=== PATIENT | male | born 1945 | race Caucasian/White ===

== ENCOUNTER 2017-12-06 10:15 | Inpatient (IN) | payer MEDICARE, OTHER ==
--- NOTE | 2017-12-06 10:27 | EDM.PDOC ---
ED HPI GENERAL MEDICAL PROBLEM - General Chief Complaint: Neurological Problem Stated Complaint: CONFUSION, GENERALIZED WEAKNESS, DIARRHEA Time Seen by Provider: 12/06/17 10:26 Source of Information: Reports: Patient, Family (), Old Records, RN, RN Notes Reviewed History Limitations: Reports: Altered Mental Status - History of Present Illness INITIAL COMMENTS - FREE TEXT/NARRATIVE: Arrives from home by POV with pt's reporting pt woke yesterday (12/05/17) with confusion/alt. mental status, and weakness. Pt unable to provide any history. states pt has been up around the house only a little and he staggers with weakness and is off balance. Unknown last known well time. Pt denies pain. states pt has had several days of diarrhea preceding the onset of confusion. Onset: Unknown/Unsure Onset Date: 12/05/17 Duration: Constant Quality: Reports: Other (denies) Severity: Severe (denies pain) Improves with: Reports: None Worsens with: Reports: None Associated Symptoms: Reports: No Other Symptoms - Related Data Allergies Allergy/AdvReac Type Severity Reaction Status Date / Time No Known Allergies Allergy Verified 10/02/16 06:27 Home Meds: Home Meds Clopidogrel [Plavix] 75 mg PO DAILY 04/19/14 [History] Felodipine [Felodipine ER] 10 mg PO DAILY 04/19/14 [History] Lisinopril 10 mg PO DAILY 04/19/14 [History] atorvaSTATin [Lipitor] 80 mg PO DAILY 04/19/14 [History] Cyanocobalamin (Vitamin B12) [Vitamin B12] 1,000 mcg INJECT .[id number] 10/01/16 [ History] Donepezil [Aricept] 1 tab PO BEDTIME 10/01/16 [History] Lidocaine 5% [Lidoderm 5%] 1 patch TOP Q24H 10/01/16 [History] Hydrocodone/Acetaminophen [Hydrocodon-Acetaminophn 10-325] 1 tab PO ASDIRECTED PRN 12/06/17 [History] Vardenafil HCl [Levitra] 1 tab PO ASDIRECTED PRN 12/06/17 [History] Vitamin E 1 cap PO DAILY 12/06/17 [History] Past Medical History HEENT History: Reports: None Cardiovascular History: Reports: High Cholesterol, Hypertension Respiratory History: Reports: None Gastrointestinal History: Reports: Diverticulosis Musculoskeletal History: Reports: Fracture Neurological History: Reports: TIA, Other (See Below) Other Neuro History: stroke syndrome Psychiatric History: Reports: Dementia Endocrine/Metabolic History: Reports: Other (See Below) (Vitamin B12 deficiency) Hematologic History: Reports: B12 Deficiency Dermatologic History: Reports: Seborrheic Dermatitis - Infectious Disease History Infectious Disease History: Reports: Rheumatic Fever - Past Surgical History Musculoskeletal Surgical History: Reports: Other (See Below) Social & Family History - Family History Family Medical History: Noncontributory - Tobacco Use Smoking Status *Q: Former Smoker Years of Tobacco use: 25 Used Tobacco, but Quit: Yes Month Tobacco Last Used: 07/04/1987 Second Hand Smoke Exposure: No - Caffeine Use Caffeine Use: Reports: Coffee - Alcohol Use Days Per Week of Alcohol Use: 3 Number of Drinks Per Day: 3 Total Drinks Per Week: 9 - Recreational Drug Use Recreational Drug Use: No - Living Situation & Occupation Living situation: Reports: Occupation: Retired ED ROS GENERAL - Review of Systems Review Of Systems: ROS reveals no pertinent complaints other than HPI. - Physical Exam Exam: See Below Exam Limited By: Altered Mental Status General Appearance: Alert, No Apparent Distress, Other (chronically ill but non- toxic appearing) Eye Exam: Bilateral Eye: EOMI, Normal Inspection, PERRL Ears: Hearing Grossly Normal Nose: Normal Inspection Throat/Mouth: Normal Lips, Normal Oropharynx, Normal Voice, No Airway Compromise Head Exam: Atraumatic, Normocephalic Neck: Normal Inspection, Supple, Non-Tender, Full Range of Motion Respiratory/Chest: No Respiratory Distress, Lungs Clear, No Accessory Muscle Use , Decreased Breath Sounds Cardiovascular: Regular Rate, Rhythm, No Edema GI/Abdominal: Normal Bowel Sounds, Soft, Non-Tender, No Distention (Male) Exam: Deferred Rectal (Males) Exam: Deferred Neuro Exam (Abbreviated): Alert, Confused, Other (generalized weakness) Back Exam: Normal Inspection Extremities: Normal Inspection, Normal Range of Motion, Non-Tender, No Pedal Edema, Normal Capillary Refill Psychiatric: Normal Mood Skin Exam: Warm, Dry, Intact, Normal Color, No Rash EKG INTERPRETATION EKG Date: 12/06/17 Time: 10:19 Rhythm: Other (SR) Rate (Beats/Min): 75 [place]: Normal P-Wave: Present QRS: Normal (with single PVC) ST-T: Normal QT: Normal Comparison: NA - No Prior EKG EKG Interpretation Comments: No acute ischemic changes. Course - Vital Signs Last Recorded V/S: Last Vital Signs Temp 37.6 C 12/06/17 10:16 Pulse 76 12/06/17 10:16 Resp 18 12/06/17 10:16 BP 152/73 H 12/06/17 10:16 Pulse Ox 97 12/06/17 10:16 - Orders/Labs/Meds Orders: Active Orders 24 hr Category Date Time Status EKG 12 Lead [EKG Documentation Completion] [RC] STAT Care 12/06/17 10:32 Active Peripheral IV Care [RC] . DIRECTED Care 12/06/17 10:33 Active Chest 1V Frontal [CR] Stat Exams 12/06/17 10:34 Taken Head wo Cont [CT] Stat Exams 12/06/17 10:27 Taken AMMONIA VENOUS [CHEM] Stat Lab 12/06/17 10:29 Ordered AMMONIA VENOUS [CHEM] Stat Lab 12/06/17 11:02 Received AMYLASE [CHEM] Stat Lab 12/06/17 10:28 Ordered CBC WITH AUTO DIFF [HEME] Stat Lab 12/06/17 10:28 Ordered COMPREHENSIVE METABOLIC PN,CMP [CHEM] Stat Lab 12/06/17 10:28 Ordered CREATINE KINASE,CK [CHEM] Stat Lab 12/06/17 10:28 Ordered CULTURE BLOOD [BC] Stat Lab 12/06/17 10:28 Received CULTURE BLOOD [BC] Stat Lab 12/06/17 10:29 Ordered CULTURE BLOOD [BC] Stat Lab 12/06/17 10:29 Ordered CULTURE BLOOD [BC] Stat Lab 12/06/17 11:02 Received DRUG SCREEN URINE BIORAD [URCHEM] Stat Lab 12/06/17 10:28 Uncollected TSH ULTRASENSITIVE [CHEM] Stat Lab 12/06/17 10:28 Received UA W/MICROSCOPIC [URIN] Stat Lab 12/06/17 10:32 Uncollected Sodium Chloride 0.9% [Normal Saline] 1,000 ml Med 12/06/17 11:15 Active IV ASDIRECTED Sodium Chloride 0.9% [Saline Flush] Med 12/06/17 10:31 Active 10 ml FLUSH ASDIRECTED PRN Blood Culture x2 Reflex Set [OM.PC] Stat Oth 12/06/17 10:28 Ordered Peripheral IV Insertion Adult [OM.PC] Stat Oth 12/06/17 10:32 Ordered Medication Orders Sodium Chloride (Normal Saline) 1,000 mls @ 200 mls/hr IV ASDIRECTED JAMIE Sodium Chloride (Saline Flush) 10 ml FLUSH ASDIRECTED PRN PRN Reason: Keep Vein Open Last Admin: 12/06/17 10:42 Dose: 10 ml Labs: Laboratory Tests 12/06/17 12/06/17 12/06/17 Range/Units 10:28 10:28 10:28 WBC (5.0-10.0) 10^3/uL RBC (4.6-6.2) 10^6/uL Hgb (14.0-18.0) g/dL Hct (40.0-54.0) % MCV (80-100) fL MCH (27.0-34.0) pg MCHC (33.0-35.0) g/dL Plt Count (150-450) 10^3/uL Neut % (Auto) (42.2-75.2) % Lymph % (Auto) (20.5-50.1) % [place] % (Auto) (2-8) % Eos % (Auto) (1.0-3.0) % Baso % (Auto) (0.0-1.0) % Sodium 137 (135-145) mmol/L Potassium 3.9 (3.6-5.0) mmol/L Chloride 106 (101-111) mmol/L Carbon Dioxide 20.0 L (21.0-31.0) mmol/L Anion Gap 14.9 BUN 29 H (7-18) mg/dL Creatinine 1.4 H (0.6-1.3) mg/dL Est Cr Clr Drug Dosing 47.69 mL/min Estimated GFR (MDRD) 50 BUN/Creatinine Ratio 20.71 Glucose 119 H (74-105) mg/dL POC Glucose 109 (83-110) mg/dl Lactic Acid 1.0 (0.5-2.2) mmol/L Calcium 9.5 (8.4-10.2) mg/dl Magnesium 1.8 (1.8-2.5) mg/dL Total Bilirubin 0.7 (0.2-1.0) mg/dL AST 22 (10-42) IU/L ALT 34 (10-60) IU/L Alkaline Phosphatase 81 (42-121) IU/L Creatine Kinase 31 (26-174) IU/L Troponin I < 0.02 (0.00-0.02) ng/ml Total Protein 7.5 (6.7-8.2) g/dl Albumin 4.2 (3.2-5.5) g/dl Globulin 3.3 Albumin/Globulin Ratio 1.27 Amylase 139 H (28-100) U/L Lipase 55 H (22-51) U/L Ethyl Alcohol < 5 mg/dL 12/06/17 Range/Units 10:28 WBC 11.9 H (5.0-10.0) 10^3/uL RBC 4.81 (4.6-6.2) 10^6/uL Hgb 13.9 L (14.0-18.0) g/dL Hct 42.8 (40.0-54.0) % MCV 89.0 (80-100) fL MCH 28.9 (27.0-34.0) pg MCHC 32.5 L (33.0-35.0) g/dL Plt Count 190 (150-450) 10^3/uL Neut % (Auto) 86.4 H (42.2-75.2) % Lymph % (Auto) 6.0 L (20.5-50.1) % [place] % (Auto) 7.5 (2-8) % Eos % (Auto) 0.0 L (1.0-3.0) % Baso % (Auto) 0.1 (0.0-1.0) % Sodium (135-145) mmol/L Potassium (3.6-5.0) mmol/L Chloride (101-111) mmol/L Carbon Dioxide (21.0-31.0) mmol/L Anion Gap BUN (7-18) mg/dL Creatinine (0.6-1.3) mg/dL Est Cr Clr Drug Dosing mL/min Estimated GFR (MDRD) BUN/Creatinine Ratio Glucose (74-105) mg/dL POC Glucose (83-110) mg/dl Lactic Acid (0.5-2.2) mmol/L Calcium (8.4-10.2) mg/dl Magnesium (1.8-2.5) mg/dL Total Bilirubin (0.2-1.0) mg/dL AST (10-42) IU/L ALT (10-60) IU/L Alkaline Phosphatase (42-121) IU/L Creatine Kinase (26-174) IU/L Troponin I (0.00-0.02) ng/ml Total Protein (6.7-8.2) g/dl Albumin (3.2-5.5) g/dl Globulin Albumin/Globulin Ratio Amylase (28-100) U/L Lipase (22-51) U/L Ethyl Alcohol mg/dL Meds: Medications Generic Name Dose Route Start Last Admin Trade Name Freq PRN Reason Stop Dose Admin Sodium Chloride 1,000 mls @ 200 mls/hr 12/06/17 11:15 Normal Saline IV ASDIRECTED JAMIE Sodium Chloride 10 ml 12/06/17 10:31 12/06/17 10:42 Saline Flush FLUSH 10 ml ASDIRECTED PRN Administration Keep Vein Open - Radiology Interpretation Free Text/Narrative:: CXR: No acute process CT Head: possible acute ischemic area in left occipital lobe per Rad. report. CT Results Date: 12/06/17 Departure - Departure Time of Disposition: 11:26 (admit to Dr. Lockett) Disposition: Admitted As Inpatient 66 Condition: Serious Clinical Impression: Ischemic cerebrovascular accident (CVA), Acute diarrhea, Dehydration Altered mental status Qualifiers: Altered mental status type: disorientation Qualified Code(s): R41.0 - Disorientation, unspecified - Discharge Information Forms: ED Department Discharge - My Orders Last 24 Hours: My Active Orders 12/06/17 10:27 Head wo Cont [CT] Stat 12/06/17 10:28 AMYLASE [CHEM] Stat CBC WITH AUTO DIFF [HEME] Stat COMPREHENSIVE METABOLIC PN,CMP [CHEM] Stat CREATINE KINASE,CK [CHEM] Stat CULTURE BLOOD [BC] Stat DRUG SCREEN URINE BIORAD [URCHEM] Stat TSH ULTRASENSITIVE [CHEM] Stat Blood Culture x2 Reflex Set [OM.PC] Stat 12/06/17 10:29 AMMONIA VENOUS [CHEM] Stat CULTURE BLOOD [BC] Stat CULTURE BLOOD [BC] Stat 12/06/17 10:31 Sodium Chloride 0.9% [Saline Flush] 10 ml FLUSH ASDIRECTED PRN 12/06/17 10:32 EKG 12 Lead [EKG Documentation Completion] [RC] STAT UA W/MICROSCOPIC [URIN] Stat Peripheral IV Insertion Adult [OM.PC] Stat 12/06/17 10:33 Peripheral IV Care [RC] . DIRECTED 12/06/17 10:34 Chest 1V Frontal [CR] Stat 12/06/17 11:02 AMMONIA VENOUS [CHEM] Stat CULTURE BLOOD [BC] Stat 12/06/17 11:15 Sodium Chloride 0.9% [Normal Saline] 1,000 ml IV ASDIRECTED - Assessment/Plan Last 24 Hours: My Active Orders 12/06/17 10:27 Head wo Cont [CT] Stat 12/06/17 10:28 AMYLASE [CHEM] Stat CBC WITH AUTO DIFF [HEME] Stat COMPREHENSIVE METABOLIC PN,CMP [CHEM] Stat CREATINE KINASE,CK [CHEM] Stat CULTURE BLOOD [BC] Stat DRUG SCREEN URINE BIORAD [URCHEM] Stat TSH ULTRASENSITIVE [CHEM] Stat Blood Culture x2 Reflex Set [OM.PC] Stat 12/06/17 10:29 AMMONIA VENOUS [CHEM] Stat CULTURE BLOOD [BC] Stat CULTURE BLOOD [BC] Stat 12/06/17 10:31 Sodium Chloride 0.9% [Saline Flush] 10 ml FLUSH ASDIRECTED PRN 12/06/17 10:32 EKG 12 Lead [EKG Documentation Completion] [RC] STAT UA W/MICROSCOPIC [URIN] Stat Peripheral IV Insertion Adult [OM.PC] Stat 12/06/17 10:33 Peripheral IV Care [RC] . DIRECTED 12/06/17 10:34 Chest 1V Frontal [CR] Stat 12/06/17 11:02 AMMONIA VENOUS [CHEM] Stat CULTURE BLOOD [BC] Stat 12/06/17 11:15 Sodium Chloride 0.9% [Normal Saline] 1,000 ml IV ASDIRECTED
[2017-12-06] MEDS: Sodium Chloride 0.9% 10 ML Syringe FLUSH PRN ×2 (10:42→23:53)
[2017-12-06 11:02] LABS: ANION GAP 14.9; CHLORIDE,CL 106 mmol/L (101-111); SODIUM,NA 137 mmol/L (135-145)
[2017-12-06] MEDS ORDERED: Sodium Chloride 0.9% 1,000 ML IV SCH (11:15)
[2017-12-06] MEDS ORDERED: Acetaminophen/HYDROcodone 325-10 MG Tab PO PRN (13:10)
[2017-12-06] MEDS ORDERED: Zolpidem 5 MG Tab PO PRN (13:26)
[2017-12-06] MEDS ORDERED: Ondansetron 4 MG/2 ML SDV IVPUSH PRN (13:26)
--- NOTE | 2017-12-06 13:49 | PCM.HP ---
H&P History of Present Illness - General Date of Service: 12/06/17 Admit Problem/Dx: Admission Diagnosis/Problem Admission Diagnosis/Problem Acute encephalopathy Source of Information: Patient (The patient has minimal insight into recent events), Family - History of Present Illness Initial Comments - Free Text/Narative: The patient is a 73-year-old gentleman with a history of dementia. Lives with family. He was noted to have diarrhea. He was noted to have increased confusion. No apparent focal motor deficit but appeared unsteady on his feet. No fever, no complains of pain. No shortness of breath. - Related Data Allergies/Adverse Reactions: Allergies Allergy/AdvReac Type Severity Reaction Status Date / Time No Known Allergies Allergy Verified 12/06/17 12:50 Home Medications: Home Meds Clopidogrel [Plavix] 75 mg PO DAILY 04/19/14 [History] Felodipine [Felodipine ER] 10 mg PO DAILY 04/19/14 [History] Lisinopril 10 mg PO DAILY 04/19/14 [History] atorvaSTATin [Lipitor] 80 mg PO DAILY 04/19/14 [History] Cyanocobalamin (Vitamin B12) [Vitamin B12] 1,000 mcg INJECT .[id number] 10/01/16 [ History] Donepezil [Aricept] 2 tab PO BEDTIME 10/01/16 [History] Lidocaine 5% [Lidoderm 5%] 1 patch TOP Q24H 10/01/16 [History] Hydrocodone/Acetaminophen [Hydrocodon-Acetaminophn 10-325] 1 tab PO ASDIRECTED PRN 12/06/17 [History] Vardenafil HCl [Levitra] 1 tab PO ASDIRECTED PRN 12/06/17 [History] Vitamin E 1 cap PO BID 12/06/17 [History] Past Medical History HEENT History: Reports: None Cardiovascular History: Reports: High Cholesterol, Hypertension Respiratory History: Reports: None Gastrointestinal History: Reports: Diverticulosis Musculoskeletal History: Reports: Fracture Neurological History: Reports: TIA, Other (See Below) Other Neuro History: stroke syndrome Psychiatric History: Reports: Dementia Endocrine/Metabolic History: Reports: Other (See Below) Hematologic History: Reports: B12 Deficiency Dermatologic History: Reports: Seborrheic Dermatitis - Infectious Disease History Infectious Disease History: Reports: Rheumatic Fever - Past Surgical History Male Surgical History: Reports: Other (See Below) Other Male Surgeries/Procedures: gynecomastia, male Musculoskeletal Surgical History: Reports: Other (See Below) Social & Family History - Family History Family Medical History: Noncontributory - Tobacco Use Smoking Status *Q: Former Smoker Years of Tobacco use: 25 Used Tobacco, but Quit: Yes Month Tobacco Last Used: 07/04/1987 Second Hand Smoke Exposure: No - Caffeine Use Caffeine Use: Reports: Coffee - Alcohol Use Days Per Week of Alcohol Use: 3 Number of Drinks Per Day: 3 Total Drinks Per Week: 9 - Recreational Drug Use Recreational Drug Use: No - Living Situation & Occupation Living situation: Reports: Occupation: Retired H&P Review of Systems - Review of Systems: Review Of Systems: See Below General: Denies: Fever, Chills Pulmonary: Denies: Shortness of Breath Cardiovascular: Denies: Chest Pain Gastrointestinal: Denies: Abdominal Pain Psychiatric: Reports: Confusion Neurological: Reports: Dizziness Exam - Exam Exam: See Below - Vital Signs Vital Signs: Last Vital Signs Temp 37.1 C 12/06/17 12:25 Pulse 72 12/06/17 12:25 Resp 20 12/06/17 12:25 BP 124/65 12/06/17 12:25 Pulse Ox 97 12/06/17 12:25 Weight: 81.647 kg - Exam General: Alert. No: Oriented (He is not clear why he is in the hospital but he notes that he is in the hospital) Neck: Supple Lungs: Clear to Auscultation Cardiovascular: Regular Rate, Regular Rhythm GI/Abdominal Exam: Normal Bowel Sounds, Soft, Non-Tender Extremities: No Pedal Edema Neurological: Strength Equal Bilateral, Sensation Intact Neuro Extensive - Mental Status: Alert, Normal Mood/Affect. No: Oriented x3 - Patient Data Result Diagrams: 12/06/17 10:28 12/06/17 10:28 Imaging Impressions Last 24 hrs: Chest x-ray per my reading shows no infiltrate *Q Meaningful Use (ADM) - VTE *Q VTE Criteria *Q: - Stroke *Q Stroke Criteria *Q: - AMI *Q AMI Criteria *Q: - Problem List (1) Ischemic cerebrovascular accident (CVA) SNOMED Code(s): 074003051 ICD Code: I63.9 - CEREBRAL INFARCTION, UNSPECIFIED Status: Acute Current Visit: Yes Problem List Initiated/Reviewed/Updated: Yes Orders Last 24hrs: Active Orders 24 hr Category Date Time Status Patient Status [ADT] Routine ADT 12/06/17 13:26 Active Antiembolic Devices [RC] PER UNIT ROUTINE Care 12/06/17 13:29 Active Oxygen Therapy [RC] PRN Care 12/06/17 13:26 Active Telemetry Monitoring [Cardiac Monitoring] [RC] . Care 12/06/17 13:13 Active DIRECTED Up With Assistance [RC] ASDIRECTED Care 12/06/17 13:26 Active VTE/DVT Education [RC] PER UNIT ROUTINE Care 12/06/17 13:26 Active Vital Signs [RC] Q4H Care 12/06/17 13:26 Active OT Evaluation and Treatment [CONS] Routine Cons 12/06/17 13:13 Active PT Evaluation and Treatment [CONS] Routine Cons 12/06/17 13:13 Active Regular Diet [DIET] Diet 12/06/17 Dinner Active Brain w wo Cont [MR] Routine Exams 12/06/17 13:13 Ordered BASIC METABOLIC PANEL,BMP [CHEM] AM Lab 12/07/17 05:15 Ordered C DIFFICILE TOXIN BY PCR [MREF] Routine Lab 12/06/17 13:14 Uncollected CBC WITH AUTO DIFF [HEME] AM Lab 12/07/17 05:15 Ordered Acetaminophen [Tylenol] Med 12/06/17 13:26 Active 650 mg PO Q4H PRN Acetaminophen/HYDROcodone [[place] 325-10 MG] Med 12/06/17 13:10 Active 1 tab PO Q8H PRN Clopidogrel [Plavix] Med 12/07/17 09:00 Active 75 mg PO DAILY Donepezil [Aricept] Med 12/06/17 21:00 Active 20 mg PO BEDTIME Felodipine [Felodipine ER] Med 12/07/17 09:00 Pending 10 mg PO DAILY Heparin Sodium Med 12/06/17 22:00 Active 5,000 units SUBCUT Q8HR Lidocaine 5% [Lidoderm 5%] Med 12/06/17 13:15 Active 700 mg TOP DAILY Lisinopril [Prinivil] Med 12/07/17 09:00 Active 10 mg PO DAILY NS + KCl 20mEq/L [Normal Saline with 20 mEq KCl] 1,000 Med 12/06/17 13:15 Active ml IV ASDIRECTED Ondansetron [Zofran] Med 12/06/17 13:26 Active 4 mg IVPUSH Q4H PRN Remove Patch Med 12/06/17 21:00 Active 1 ea TRDERM BEDTIME Zolpidem [Ambien] Med 12/06/17 13:26 Active 5 mg PO BEDTIME PRN atorvaSTATin [Lipitor] Med 12/07/17 09:00 Active 80 mg PO DAILY Antiembolic Hose [OM.PC] Per Unit Routine Oth 12/06/17 13:28 Ordered Resuscitation Status Routine Resus Stat 12/06/17 13:26 Ordered Medication Orders Acetaminophen (Tylenol) 650 mg PO Q4H PRN PRN Reason: Pain (Mild 1-3)/fever Hydrocodone Bitart/Acetaminophen ([place] 325-10 Mg) 1 tab PO Q8H PRN PRN Reason: back pain Atorvastatin Calcium (Lipitor) 80 mg PO DAILY JAMIE Clopidogrel Bisulfate (Plavix) 75 mg PO DAILY JAMIE Donepezil HCl (Aricept) 20 mg PO BEDTIME JAMIE Heparin Sodium (Porcine) (Heparin Sodium) 5,000 units SUBCUT Q8HR JAMIE Potassium Chloride/Sodium Chloride (Normal Saline With 20 Meq Kcl) 1,000 mls @ 50 mls/hr IV ASDIRECTED JAMIE Lidocaine (Lidoderm 5%) 700 mg TOP DAILY JAMIE Lisinopril (Prinivil) 10 mg PO DAILY [facility] Miscellaneous Information (Remove Patch) 1 ea TRDERM BEDTIME JAMIE Non-Formulary Medication (Felodipine [Felodipine Er]) 10 mg PO DAILY JAMIE Ondansetron HCl (Zofran) 4 mg IVPUSH Q4H PRN PRN Reason: Nausea/Vomiting Sodium Chloride (Saline Flush) 10 ml FLUSH ASDIRECTED PRN PRN Reason: Keep Vein Open Last Admin: 12/06/17 10:42 Dose: 10 ml Zolpidem Tartrate (Ambien) 5 mg PO BEDTIME PRN PRN Reason: Sleep Assessment/Plan Comment:: 72-year-old with a history of dementia, dyslipidemia, cerebrovascular disease, carotid artery disease. Presented with unsteadiness, increased confusion. Acute encephalopathy possible due to acute stroke The patient has a history of cerebrovascular disease and has been following at the [facility] for carotid artery disease Last carotid ultrasound I have from 2011 shows persistent 50-69% stenosis in the right internal carotid artery and less than 50% in the left internal carotid artery Today On noncontrast CT there was a concern for "new left occipital hypodensity " Will obtain MRI of the head Continue to treat with Plavix, statin Physical and occupational therapy Monitor on telemetry for arrhythmia Control blood pressure Screen for diabetes with Blood sugars Follow-up with [facility] as outpatient Diarrhea with mild leukocytosis Check for C. difficile Leukocytosis Obtain urine culture Obtain blood culture Will give gentle IV hydration Chronic pain Use Lidoderm patch, lower set History of dementia Treat with donepezil Last B12 injection was Hypertension Treat with lisinopril, felodipine DVT prophylaxis will be with subcutaneous heparin
[2017-12-06] MEDS ORDERED: Gadobenate Dimeglumine 529 MG/ML 20 ML SDV IVPUSH ONE (14:19)
[2017-12-06] MEDS: Lidocaine 5% 700 MG Patch TOP SCH (15:14)
[2017-12-06] MEDS: NS + KCl 20mEq/L 1,000 ML IV SCH (15:15)
[2017-12-06] MEDS: Acetaminophen 325 MG Tab PO PRN ×2 (16:23→20:29)
[2017-12-06] MEDS: Donepezil 10 MG Tab PO SCH (20:32)
[2017-12-06] MEDS ORDERED: Donepezil 10 MG Tab PO SCH (21:00)
[2017-12-06] MEDS ORDERED: Ibuprofen 400 MG Tab PO PRN (22:06)
[2017-12-06] MEDS: Heparin Sodium 5,000 Units/ML Vial SUBCUT SCH (22:06)
[2017-12-06] MEDS: cefTRIAXone 1 GM Vial IVPUSH SCH (23:53)
[2017-12-07] MEDS: Sodium Chloride 0.9% 10 ML Syringe FLUSH PRN ×3 (00:02→21:34)
[2017-12-07] MEDS: Acetaminophen 325 MG Tab PO PRN ×2 (04:56→14:58)
[2017-12-07] MEDS: Heparin Sodium 5,000 Units/ML Vial SUBCUT SCH ×3 (05:02→21:23)
[2017-12-07 07:05] LABS: ANION GAP 8.5
[2017-12-07] MEDS: atorvaSTATin 20 MG Tab PO SCH (08:54)
[2017-12-07] MEDS: Clopidogrel 75 MG Tab PO SCH (08:54)
[2017-12-07] MEDS: Lidocaine 5% 700 MG Patch TOP SCH (08:54)
[2017-12-07] MEDS: FELODIPINE 10 MG PO SCH (08:55)
[2017-12-07] MEDS: Lisinopril 10 MG Tab PO SCH (08:55)
[2017-12-07] MEDS: NS + KCl 20mEq/L 1,000 ML IV SCH (11:36)
[2017-12-07] MEDS ORDERED: Potassium Chloride 10 MEQ Tab.ER PO ONE (11:44)
--- NOTE | 2017-12-07 12:00 | PCM.PN ---
- General Info Date of Service: 12/07/17 Admission Dx/Problem (Free Text): Admission Diagnosis/Problem Admission Diagnosis/Problem Acute encephalopathy Subjective Update: Remained mildly confused but improved by this morning. Noted to have high fever associated with chills overnight. Started on Rocephin. Tested for influenza which was negative. Feeling well this morning. Functional Status: Reports: Pain Controlled, Tolerating Diet - Review of Systems General: Reports: Fever Pulmonary: Denies: Shortness of Breath Cardiovascular: Denies: Chest Pain Gastrointestinal: Denies: Abdominal Pain Genitourinary: Denies: Dysuria - Patient Data Vitals - Most Recent: Last Vital Signs Temp 36.7 C 12/07/17 11:49 Pulse 83 12/07/17 11:49 Resp 20 12/07/17 11:49 BP 116/60 12/07/17 11:49 Pulse Ox 95 12/07/17 11:49 Weight - Most Recent: 81.647 kg I&O - Last 24 Hours: Intake & Output 12/06/17 12/07/17 12/07/17 22:59 06:59 14:59 Intake Total 400 1228 574 Output Total 200 250 Balance 200 978 574 Lab Results Last 24 Hours: Laboratory Results - last 24 hr 12/06/17 12/06/17 12/07/17 Range/Units 17:25 17:25 06:16 WBC 8.1 (5.0-10.0) 10^3/uL RBC 4.32 L (4.6-6.2) 10^6/uL Hgb 12.4 L D (14.0-18.0) g/dL Hct 37.9 L (40.0-54.0) % MCV 87.7 (80-100) fL MCH 28.7 (27.0-34.0) pg MCHC 32.7 L (33.0-35.0) g/dL Plt Count 146 L (150-450) 10^3/uL Neut % (Auto) 80.9 H (42.2-75.2) % Lymph % (Auto) 6.4 L (20.5-50.1) % Car[place] % (Auto) 12.6 H (2-8) % Eos % (Auto) 0.0 L (1.0-3.0) % Baso % (Auto) 0.1 (0.0-1.0) % Sodium (135-145) mmol/L Potassium (3.6-5.0) mmol/L Chloride (101-111) mmol/L Carbon Dioxide (21.0-31.0) mmol/L Anion Gap BUN (7-18) mg/dL Creatinine (0.6-1.3) mg/dL Est Cr Clr Drug Dosing mL/min Estimated GFR (MDRD) Glucose (74-105) mg/dL Calcium (8.4-10.2) mg/dl Urine Color Yellow (YELLOW) Urine Appearance Clear (CLEAR) Urine pH 5.5 (5.0-9.0) Ur Specific [place] 1.025 (1.005-1.030) Urine Protein 30 H (NEGATIVE) Urine Glucose (UA) Negative (NEGATIVE) Urine Ketones Negative (NEGATIVE) Urine Occult Blood Moderate H (NEGATIVE) Urine Nitrite Negative (NEGATIVE) Urine Bilirubin Negative (NEGATIVE) Urine Urobilinogen 0.2 (0.2-1.0) mg/dL Ur Leukocyte Esterase Negative (NEGATIVE) Urine RBC 0-5 /HPF Urine WBC 0-5 (0-5/HPF) /HPF Ur Epithelial Cells Rare /HPF Amorphous Sediment Few (0/HPF) /HPF Urine Bacteria Moderate H (0-FEW/HPF) /HPF Hyaline Casts Moderate H /LPF Granular Casts Moderate /LPF Urine Mucus Few H /LPF Urine Opiates Screen Negative (NEGATIVE) Ur Oxycodone Screen Negative (NEGATIVE) Urine Methadone Screen Negative (NEGATIVE) Ur Barbiturates Screen Negative (NEGATIVE) U Tricyclic Antidepress Negative (NEGATIVE) Ur Phencyclidine Scrn Negative (NEGATIVE) Ur Amphetamine Screen Negative (NEGATIVE) U Methamphetamines Scrn Negative (NEGATIVE) Urine MDMA Screen Negative (NEGATIVE) U Benzodiazepines Scrn Negative (NEGATIVE) Urine Cocaine Screen Negative (NEGATIVE) U Marijuana (THC) Screen Negative (NEGATIVE) 12/07/17 Range/Units 06:16 WBC (5.0-10.0) 10^3/uL RBC (4.6-6.2) 10^6/uL Hgb (14.0-18.0) g/dL Hct (40.0-54.0) % MCV (80-100) fL MCH (27.0-34.0) pg MCHC (33.0-35.0) g/dL Plt Count (150-450) 10^3/uL Neut % (Auto) (42.2-75.2) % Lymph % (Auto) (20.5-50.1) % Carver % (Auto) (2-8) % Eos % (Auto) (1.0-3.0) % Baso % (Auto) (0.0-1.0) % Sodium 132 L (135-145) mmol/L Potassium 3.5 L (3.6-5.0) mmol/L Chloride 109 (101-111) mmol/L Carbon Dioxide 18.0 L (21.0-31.0) mmol/L Anion Gap 8.5 BUN 26 H (7-18) mg/dL Creatinine 1.2 (0.6-1.3) mg/dL Est Cr Clr Drug Dosing 55.64 mL/min Estimated GFR (MDRD) 60 Glucose 121 H (74-105) mg/dL Calcium 8.5 (8.4-10.2) mg/dl Urine Color (YELLOW) Urine Appearance (CLEAR) Urine pH (5.0-9.0) Ur Specific [place] (1.005-1.030) Urine Protein (NEGATIVE) Urine Glucose (UA) (NEGATIVE) Urine Ketones (NEGATIVE) Urine Occult Blood (NEGATIVE) Urine Nitrite (NEGATIVE) Urine Bilirubin (NEGATIVE) Urine Urobilinogen (0.2-1.0) mg/dL Ur Leukocyte Esterase (NEGATIVE) Urine RBC /HPF Urine WBC (0-5/HPF) /HPF Ur Epithelial Cells /HPF Amorphous Sediment (0/HPF) /HPF Urine Bacteria (0-FEW/HPF) /HPF Hyaline Casts /LPF Granular Casts /LPF Urine Mucus /LPF Urine Opiates Screen (NEGATIVE) Ur Oxycodone Screen (NEGATIVE) Urine Methadone Screen (NEGATIVE) Ur Barbiturates Screen (NEGATIVE) U Tricyclic Antidepress (NEGATIVE) Ur Phencyclidine Scrn (NEGATIVE) Ur Amphetamine Screen (NEGATIVE) U Methamphetamines Scrn (NEGATIVE) Urine MDMA Screen (NEGATIVE) U Benzodiazepines Scrn (NEGATIVE) Urine Cocaine Screen (NEGATIVE) U Marijuana (THC) Screen (NEGATIVE) Jeremy Results Last 24 Hours: Microbiology 12/07/17 06:55 Influenza Type A Antigen Screen - Final Nasal, Left NEGATIVE INFLUENZA A VIRUS AG Influenza Type B Antigen Screen - Final NEGATIVE INFLUENZA B VIRUS AG Med Orders - Current: Current Medications Acetaminophen (Tylenol) 650 mg PO Q4H PRN PRN Reason: Pain (Mild 1-3)/fever Last Admin: 12/07/17 04:56 Dose: 650 mg Hydrocodone Bitart/Acetaminophen ([place] 325-10 Mg) 1 tab PO Q8H PRN PRN Reason: back pain Atorvastatin Calcium (Lipitor) 80 mg PO DAILY [facility] Last Admin: 12/07/17 08:54 Dose: 80 mg Ceftriaxone Sodium (Rocephin) 1 gm IVPUSH Q24H [facility] Last Admin: 12/06/17 23:53 Dose: 1 gm Clopidogrel Bisulfate (Plavix) 75 mg PO DAILY [facility] Last Admin: 12/07/17 08:54 Dose: 75 mg Donepezil HCl (Aricept) 10 mg PO BEDTIME [facility] Last Admin: 12/06/17 20:32 Dose: 10 mg Heparin Sodium (Porcine) (Heparin Sodium) 5,000 units SUBCUT Q8HR [facility] Last Admin: 12/07/17 05:02 Dose: 5,000 units Potassium Chloride/Sodium Chloride (Normal Saline With 20 Meq Kcl) 1,000 mls @ 50 mls/hr IV ASDIRECTED [facility] Last Admin: 12/07/17 11:36 Dose: 50 mls/hr Ibuprofen (Motrin) 400 mg PO Q6H PRN PRN Reason: Fever Last Admin: 12/07/17 00:06 Dose: 400 mg Lidocaine (Lidoderm 5%) 700 mg TOP DAILY [facility] Last Admin: 12/07/17 08:54 Dose: 700 mg Lisinopril (Prinivil) 10 mg PO DAILY [facility] Last Admin: 12/07/17 08:55 Dose: 10 mg Miscellaneous Information (Remove Patch) 1 ea TRDERM BEDTIME [facility] Last Admin: 12/06/17 22:04 Dose: Not Given Ondansetron HCl (Zofran) 4 mg IVPUSH Q4H PRN PRN Reason: Nausea/Vomiting Felodipine Er 10 Mg (Pt's Own Med) 0 each PO DAILY [facility] Last Admin: 12/07/17 08:55 Dose: 1 each Sodium Chloride (Saline Flush) 10 ml FLUSH ASDIRECTED PRN PRN Reason: Keep Vein Open Last Admin: 12/07/17 00:02 Dose: 10 ml Zolpidem Tartrate (Ambien) 5 mg PO BEDTIME PRN PRN Reason: Sleep Discontinued Medications Gadobenate Dimeglumine (Multihance) 20 ml IVPUSH ONETIME ONE Stop: 12/06/17 14:20 Last Admin: 12/06/17 15:41 Dose: Not Given Sodium Chloride (Normal Saline) 1,000 mls @ 200 mls/hr IV ASDIRECTED JAMIE Last Admin: 12/06/17 11:26 Dose: 200 mls/hr Potassium Chloride (Klor-Con 10) 40 meq PO ONETIME ONE Stop: 12/07/17 11:45 - Exam General: Alert, Oriented Neck: Supple Lungs: Clear to Auscultation, Normal Respiratory Effort Cardiovascular: Regular Rate, Regular Rhythm GI/Abdominal Exam: Normal Bowel Sounds, Soft, Non-Tender Skin: Warm, Dry Neurological: No New Focal Deficit Psy/Mental Status: Other (Mild confusion to plans but oriented to place and person) - Problem List & Annotations (1) Ischemic cerebrovascular accident (CVA) SNOMED Code(s): 393542931 Code(s): I63.9 - CEREBRAL INFARCTION, UNSPECIFIED Status: Acute Current Visit: Yes - Problem List Review Problem List Initiated/Reviewed/Updated: Yes - My Orders Last 24 Hours: My Active Orders 12/06/17 21:00 Donepezil [Aricept] 10 mg PO BEDTIME Remove Patch 1 ea TRDERM BEDTIME 12/06/17 22:00 cefTRIAXone [Rocephin] 1 gm IVPUSH Q24H 12/06/17 22:06 Ibuprofen [Motrin] 400 mg PO Q6H PRN 12/07/17 09:22 Patient Status [ADT] Routine 12/08/17 05:15 BASIC METABOLIC PANEL,BMP [CHEM] AM CBC WITH AUTO DIFF [HEME] AM - Plan Plan:: 72-year-old with a history of dementia, dyslipidemia, cerebrovascular disease, carotid artery disease. Presented with unsteadiness, increased confusion. Acute encephalopathy possible due to acute stroke The patient has a history of cerebrovascular disease and has been following at the [facility] for carotid artery disease Last carotid ultrasound I have from 2011 shows persistent 50-69% stenosis in the right internal carotid artery and less than 50% in the left internal carotid artery On noncontrast CT there was a concern for "new left occipital hypodensity" MRI of the head showed no acute stroke Continue to treat with Plavix, statin Physical and occupational therapy Monitor on telemetry for arrhythmia Control blood pressure Screen for diabetes with Blood sugars [facility] Diarrhea with mild leukocytosis Check for C. difficile Leukocytosis High fever last night associated with chills Pending urine culture Pending blood culture Stop IV hydration Started Rocephin Chronic pain Use Lidoderm patch History of dementia Treat with donepezil Last B12 injection was Hypertension Treat with lisinopril, felodipine DVT prophylaxis will be with subcutaneous heparin
[2017-12-07] MEDS: Donepezil 10 MG Tab PO SCH (21:20)
[2017-12-07] MEDS: cefTRIAXone 1 GM Vial IVPUSH SCH (21:27)
[2017-12-08] MEDS: Heparin Sodium 5,000 Units/ML Vial SUBCUT SCH (05:44)
[2017-12-08 07:05] LABS: ANION GAP 11.2; CHLORIDE,CL 106 mmol/L (101-111); SODIUM,NA 135 mmol/L (135-145)
[2017-12-08] MEDS: Clopidogrel 75 MG Tab PO SCH (10:22)
[2017-12-08] MEDS: Lisinopril 10 MG Tab PO SCH (10:22)
[2017-12-08] MEDS: atorvaSTATin 20 MG Tab PO SCH (10:25)
[2017-12-08] MEDS: FELODIPINE 10 MG PO SCH (10:26)
[2017-12-08 10:27] VITALS: BP 123/63
[2017-12-08] MEDS: Lidocaine 5% 700 MG Patch TOP SCH (10:27)
--- NOTE | 2017-12-08 10:46 | PCM.DCSUM1 ---
Discharge Summary - Hospital Course Free Text/Narrative:: 72-year-old with a history of dementia, dyslipidemia, cerebrovascular disease, carotid artery disease. Presented with unsteadiness, increased confusion. Acute encephalopathy The patient has a history of cerebrovascular disease and has been following at the [facility] for carotid artery disease Last carotid ultrasound I have from 2011 shows persistent 50-69% stenosis in the right internal carotid artery and less than 50% in the left internal carotid artery On noncontrast CT there was a concern for "new left occipital hypodensity" MRI of the head showed no acute stroke Continue to treat with Plavix, statin Monitored on telemetry for arrhythmia - none Control blood pressure Follow-up with [place] [facility] as outpatient Diarrhea with mild leukocytosis resolved diarrhea Leukocytosis resolved High fever associated with chills negative urine culture Pending blood culture this might be a viral infection or bacterial upper respiratory tract infection for now treated with ceftriaxone - discharge on Augmentin Chronic pain Use Lidoderm patch History of dementia Treat with donepezil Last B12 injection was Hypertension Treat with lisinopril, felodipine - Discharge Data Discharge Date: 12/08/17 Discharge Disposition: Home, Self-Care 01 Condition: Good - Discharge Diagnosis/Problem(s) (1) Ischemic cerebrovascular accident (CVA) SNOMED Code(s): 181104367 ICD Code: I63.9 - CEREBRAL INFARCTION, UNSPECIFIED Status: Acute Current Visit: Yes - Patient Instructions Diet: Heart Healthy Diet Activity: As Tolerated - Discharge Plan Prescriptions/Med Rec: Amoxicillin/Potassium Clav [Augmentin 500-125 Tablet] 1 each PO TID #21 tablet Home Medications: Home Meds Clopidogrel [Plavix] 75 mg PO DAILY 04/19/14 [History] Felodipine [Felodipine ER] 10 mg PO DAILY 04/19/14 [History] Lisinopril 10 mg PO DAILY 04/19/14 [History] atorvaSTATin [Lipitor] 80 mg PO DAILY 04/19/14 [History] Cyanocobalamin (Vitamin B12) [Vitamin B12] 1,000 mcg INJECT .[id number] 10/01/16 [ History] Donepezil [Aricept] 2 tab PO BEDTIME 10/01/16 [History] Lidocaine 5% [Lidoderm 5%] 1 patch TOP Q24H 10/01/16 [History] Hydrocodone/Acetaminophen [Hydrocodon-Acetaminophn 10-325] 1 tab PO ASDIRECTED PRN 12/06/17 [History] Vardenafil HCl [Levitra] 1 tab PO ASDIRECTED PRN 12/06/17 [History] Vitamin E 1 cap PO BID 12/06/17 [History] Amoxicillin/Potassium Clav [Augmentin 500-125 Tablet] 1 each PO TID #21 tablet 12/08/17 [Rx] Patient Handouts: Viral Respiratory Infection, [id number] Referrals: PCP,Unobtain [Ordering Only Provider] - (in 2-3 days) - Discharge Summary/Plan Comment DC Time >30 min.: No - General Info Date of Service: 12/08/17 - Review of Systems General: Denies: Fever Pulmonary: Denies: Shortness of Breath Cardiovascular: Denies: Chest Pain Gastrointestinal: Denies: Abdominal Pain Neurological: Reports: Confusion (occasional mild) - Patient Data Vitals - Most Recent: Last Vital Signs Temp 37.3 C 12/08/17 08:00 Pulse 73 12/08/17 08:00 Resp 20 12/08/17 08:00 BP 123/63 12/08/17 10:22 Pulse Ox 100 12/08/17 08:00 Weight - Most Recent: 81.647 kg I&O - Last 24 hours: Intake & Output 12/07/17 12/08/17 12/08/17 22:59 06:59 14:59 Intake Total 940 465 Output Total 400 250 Balance 540 -250 465 Lab Results - Last 24 hrs: Laboratory Results - last 24 hr 12/08/17 12/08/17 Range/Units 06:35 06:35 WBC 7.1 (5.0-10.0) 10^3/uL RBC 4.16 L (4.6-6.2) 10^6/uL Hgb 12.1 L (14.0-18.0) g/dL Hct 37.1 L (40.0-54.0) % MCV 89.2 (80-100) fL MCH 29.1 (27.0-34.0) pg MCHC 32.6 L (33.0-35.0) g/dL Plt Count 156 (150-450) 10^3/uL Neut % (Auto) 66.6 (42.2-75.2) % Lymph % (Auto) 18.4 L (20.5-50.1) % [place] % (Auto) 14.3 H (2-8) % Eos % (Auto) 0.4 L (1.0-3.0) % Baso % (Auto) 0.3 (0.0-1.0) % Sodium 135 (135-145) mmol/L Potassium 4.2 (3.6-5.0) mmol/L Chloride 106 (101-111) mmol/L Carbon Dioxide 22.0 (21.0-31.0) mmol/L Anion Gap 11.2 BUN 21 H (7-18) mg/dL Creatinine 1.1 (0.6-1.3) mg/dL Est Cr Clr Drug Dosing 60.70 mL/min Estimated GFR (MDRD) > 60 Glucose 100 (74-105) mg/dL Calcium 9.2 (8.4-10.2) mg/dl RUSTAM Results - Last 24 hrs: Microbiology 12/06/17 17:25 Urine Culture - Preliminary Urine, Clean Catch 12/07/17 06:55 Influenza Type A Antigen Screen - Final Nasal, Left NEGATIVE INFLUENZA A VIRUS AG Influenza Type B Antigen Screen - Final NEGATIVE INFLUENZA B VIRUS AG Med Orders - Current: Current Medications Acetaminophen (Tylenol) 650 mg PO Q4H PRN PRN Reason: Pain (Mild 1-3)/fever Last Admin: 12/07/17 14:58 Dose: 650 mg Hydrocodone Bitart/Acetaminophen ([place] 325-10 Mg) 1 tab PO Q8H PRN PRN Reason: back pain Atorvastatin Calcium (Lipitor) 80 mg PO DAILY [facility] Last Admin: 12/08/17 10:25 Dose: 80 mg Ceftriaxone Sodium (Rocephin) 1 gm IVPUSH Q24H [facility] Last Admin: 12/07/17 21:27 Dose: 1 gm Clopidogrel Bisulfate (Plavix) 75 mg PO DAILY [facility] Last Admin: 12/08/17 10:22 Dose: 75 mg Donepezil HCl (Aricept) 10 mg PO BEDTIME [facility] Last Admin: 12/07/17 21:20 Dose: 10 mg Heparin Sodium (Porcine) (Heparin Sodium) 5,000 units SUBCUT Q8HR [facility] Last Admin: 12/08/17 05:44 Dose: 5,000 units Ibuprofen (Motrin) 400 mg PO Q6H PRN PRN Reason: Fever Last Admin: 12/07/17 00:06 Dose: 400 mg Lidocaine (Lidoderm 5%) 700 mg TOP DAILY [facility] Last Admin: 12/08/17 10:27 Dose: 700 mg Lisinopril (Prinivil) 10 mg PO DAILY [facility] Last Admin: 12/08/17 10:22 Dose: 10 mg Miscellaneous Information (Remove Patch) 1 ea TRDERM BEDTIME [facility] Last Admin: 12/07/17 21:25 Dose: Not Given Ondansetron HCl (Zofran) 4 mg IVPUSH Q4H PRN PRN Reason: Nausea/Vomiting Felodipine Er 10 Mg (Pt's Own Med) 0 each PO DAILY [facility] Last Admin: 12/08/17 10:26 Dose: 1 each Sodium Chloride (Saline Flush) 10 ml FLUSH ASDIRECTED PRN PRN Reason: Keep Vein Open Last Admin: 12/07/17 21:34 Dose: 10 ml Zolpidem Tartrate (Ambien) 5 mg PO BEDTIME PRN PRN Reason: Sleep Discontinued Medications Gadobenate Dimeglumine (Multihance) 20 ml IVPUSH ONETIME ONE Stop: 12/06/17 14:20 Last Admin: 12/06/17 15:41 Dose: Not Given Sodium Chloride (Normal Saline) 1,000 mls @ 200 mls/hr IV ASDIRECTED [facility] Last Admin: 12/06/17 11:26 Dose: 200 mls/hr Potassium Chloride/Sodium Chloride (Normal Saline With 20 Meq Kcl) 1,000 mls @ 50 mls/hr IV ASDIRECTED [facility] Last Admin: 12/07/17 11:36 Dose: 50 mls/hr Potassium Chloride (Klor-Con 10) 40 meq PO ONETIME ONE Stop: 12/07/17 11:45 Last Admin: 12/07/17 12:39 Dose: 40 meq - Exam General: Reports: Alert, Oriented Neck: Reports: Supple Lungs: Reports: Clear to Auscultation, Normal Respiratory Effort Cardiovascular: Reports: Regular Rate, Regular Rhythm GI/Abdominal Exam: Normal Bowel Sounds, Soft, Non-Tender Extremities: No Pedal Edema *Q Meaningful Use (DIS) - VTE *Q VTE Criteria *Q: - Stroke *Q Stroke Criteria *Q: - AMI *Q AMI Criteria *Q:
--- NOTE | 2017-12-09 07:10 | EKG ---
12/06/2017- ARTI YOU - EKG per my reading shows sinus rhythm with PVC at the rate of 70s. [facility] /[id number]
== END 2017-12-08 11:55 | disposition home or self-care (01) | DRG 64 ==
LOC: DL.ED 10:15 → DL.MS 12:13 → UNDOADMIN 12:13 → DL.MS 13:26
PROVIDERS: ADMIT Internal Medicine; ATTEND Internal Medicine
DX: I63.9 Cerebral infarction, unspecified (principal); G93.40 Encephalopathy, unspecified; E86.0 Dehydration; R53.1 Weakness; F03.90 Unspecified dementia, unspecified severity, without behavioral disturbance, psychotic disturbance, mood disturbance, and anxiety; E78.5 Hyperlipidemia, unspecified; I25.10 Atherosclerotic heart disease of native coronary artery without angina pectoris; R19.7 Diarrhea, unspecified; D72.829 Elevated white blood cell count, unspecified; G89.29 Other chronic pain; I10 Essential (primary) hypertension; R41.0 Disorientation, unspecified
CPT/HCPCS: 36415; 70450; 71045; 80053; 82140; 82150; 82550; 82962; 83605; 83690; 83735; 84443; 84484; 85025; 87040 ×2; 93005; 93010; 99285; G0480; J7030; J7050; 70551; 80048; 80305; 81001; 87086; 87493; 87804; 97162-GP; 97166-GO; A9270-GY; J0696; J1644; J3480

== ENCOUNTER 2018-12-04 14:19 | Emergency (ER) | payer MEDICARE, OTHER ==
[2018-12-04] MEDS: Sodium Chloride 0.9% 10 ML Syringe FLUSH PRN (14:50)
[2018-12-04 15:20] LABS: CHLORIDE,CL 102 mmol/L (101-111); SODIUM,NA 137 mmol/L (135-145)
--- NOTE | 2018-12-04 15:44 | EDM.PDOC ---
<Ailyn Wilkes - Last Filed: 12/04/18 20:40> ED HPI GENERAL MEDICAL PROBLEM - General Chief Complaint: Lower Extremity Injury/Pain Stated Complaint: LOWER EXTREMITY INJURY Time Seen by Provider: 12/04/18 15:36 Source of Information: Reports: Patient, RN, RN Notes Reviewed History Limitations: Reports: No Limitations - History of Present Illness INITIAL COMMENTS - FREE TEXT/NARRATIVE: Patient presents to [facility] with complaint of being "foggy and being sore". He has right upper quadrant and right lower quadrant pain. [facility]. History of Alzheimer' s and dementia worse the past week. He fell last night at 04:00 unknown if he hit his head. He landed on his left side. He has chills. No fever nausea, vomiting, diarrhea, chest pain or shortness of breath. Onset: Gradual Duration: Constant Location: Reports: Abdomen Quality: Reports: Ache Severity: Moderate Improves with: Reports: None Worsens with: Reports: None Associated Symptoms: Reports: No Other Symptoms right hip Pain Score (Numeric/FACES): 4 - Related Data Allergies Allergy/AdvReac Type Severity Reaction Status Date / Time No Known Allergies Allergy Verified 12/04/18 14:30 Home Meds: Home Meds Clopidogrel [Plavix] 75 mg PO BEDTIME 04/19/14 [History] Felodipine [Felodipine ER] 10 mg PO DAILY 04/19/14 [History] Lisinopril 10 mg PO DAILY 04/19/14 [History] atorvaSTATin [Lipitor] 80 mg PO BEDTIME 04/19/14 [History] Cyanocobalamin (Vitamin B12) [Vitamin B12] 1,000 mcg INJECT .[id number] 10/01/16 [ History] Donepezil [Aricept] 1 tab PO BEDTIME 10/01/16 [History] Lidocaine 5% [Lidoderm 5%] 1 patch TOP Q24H PRN 10/01/16 [History] Vitamin E 1 cap PO BID 12/06/17 [History] Acetaminophen [Tylenol] 325 mg PO Q8HR 06/12/18 [History] Hydrocodone/Acetaminophen [Hydrocodon-Acetaminophn 10-325] 1 tab PO Q8HR PRN 07/22 [History] risperiDONE 0.5 mg PO BEDTIME 06/13/18 [History] traZODone HCl [Trazodone HCl] 25 mg PO BEDTIME 06/13/18 [History] Azithromycin [Zithromax] 250 mg PO DAILY #5 tab 06/15/18 [Rx] Past Medical History HEENT History: Reports: None Cardiovascular History: Reports: High Cholesterol, Hypertension Respiratory History: Reports: None Gastrointestinal History: Reports: Diverticulosis Genitourinary History: Reports: None Musculoskeletal History: Reports: Fracture Neurological History: Reports: TIA, Other (See Below) Other Neuro History: stroke syndrome Psychiatric History: Reports: Dementia Endocrine/Metabolic History: Reports: Other (See Below) Hematologic History: Reports: B12 Deficiency Immunologic History: Reports: None Oncologic (Cancer) History: Reports: Malignant Melanoma Dermatologic History: Reports: Seborrheic Dermatitis - Infectious Disease History Infectious Disease History: Reports: Rheumatic Fever - Past Surgical History Head Surgeries/Procedures: Reports: None Male Surgical History: Reports: Other (See Below) Other Male Surgeries/Procedures: gynecomastia, male Musculoskeletal Surgical History: Reports: None Oncologic Surgical History: Reports: Other (See Below) Other Oncologic Surgeries/Procedures: skin of nose removed, pt being monitored Social & Family History - Family History Family Medical History: Noncontributory - Tobacco Use Smoking Status *Q: Never Smoker Second Hand Smoke Exposure: No - Caffeine Use Caffeine Use: Reports: None Other Caffeine Use: green tea - Recreational Drug Use Recreational Drug Use: No - Living Situation & Occupation Living situation: Reports: Occupation: Retired Review of Systems - Review of Systems Review Of Systems: ROS reveals no pertinent complaints other than HPI. ED EXAM, GENERAL - Physical Exam Exam: See Below Exam Limited By: No Limitations General Appearance: Alert (and confused) Eye Exam: Bilateral Eye: EOMI, Normal Inspection, PERRL Ears: Normal External Exam, Normal Canal, Hearing Grossly Normal, Normal TMs Nose: Normal Inspection, Normal Mucosa, No Blood Throat/Mouth: Normal Inspection, Normal Lips, Normal Teeth, Normal Gums, Normal Oropharynx, Normal Voice, No Airway Compromise Head: Atraumatic, Normocephalic Neck: Normal Inspection, Supple, Non-Tender, Full Range of Motion Respiratory/Chest: No Respiratory Distress, Lungs Clear, Normal Breath Sounds, No Accessory Muscle Use, Chest Non-Tender Cardiovascular: Normal Peripheral Pulses, Regular Rate, Rhythm, No Edema, No Gallop, No JVD, No Murmur, No Rub GI/Abdominal: Tender (right upper quadrant and right lower quadrant) (Male) Exam: Penile Lesions Rectal (Males) Exam: Deferred Back Exam: Normal Inspection Extremities: Normal Inspection, Normal Range of Motion, Non-Tender, Normal Capillary Refill, No Pedal Edema Neurological: Alert Psychiatric: Other (disorientated and confused) Skin Exam: Warm, Dry, Intact, Normal Color, No Rash Lymphatic: No Adenopathy EKG INTERPRETATION EKG Date: 12/04/18 Time: 14:51 Rhythm: Other (sinus rhythm) Rate (Beats/Min): 69 [place]: Normal P-Wave: Present QRS: Normal ST-T: Normal QT: Normal Course - Vital Signs Last Recorded V/S: Last Vital Signs Temp 99 F 12/04/18 23:18 Pulse 76 12/04/18 23:18 Resp 18 12/04/18 23:18 BP 137/67 12/04/18 23:18 Pulse Ox 96 12/04/18 23:18 - Orders/Labs/Meds Orders: Active Orders 24 hr Category Date Time Status EKG Documentation Completion [RC] STAT Care 12/04/18 14:35 Active Insert Urinary Catheter [OM.PC] Q24H Care 12/04/18 16:00 Ordered Peripheral IV Care [RC] . DIRECTED Care 12/04/18 14:36 Active Urinary Catheter Assessment [RC] ASDIRECTED Care 12/04/18 15:58 Active CULTURE BLOOD [BC] Stat Lab 12/04/18 14:50 Received CULTURE BLOOD [BC] Stat Lab 12/04/18 14:54 Received Blood Culture x2 Reflex Set [OM.PC] Stat Oth 12/04/18 14:36 Ordered Peripheral IV Insertion Adult [OM.PC] Stat Oth 12/04/18 14:35 Ordered Labs: Laboratory Tests 12/04/18 12/04/18 12/04/18 Range/Units 14:50 14:50 14:50 WBC 8.5 (5.0-10.0) 10^3/uL RBC 4.38 L (4.6-6.2) 10^6/uL Hgb 12.9 L (14.0-18.0) g/dL Hct 38.8 L (40.0-54.0) % MCV 88.6 (80-100) fL MCH 29.5 (27.0-34.0) pg MCHC 33.2 (33.0-35.0) g/dL Plt Count 173 (150-450) 10^3/uL Neut % (Auto) 64.6 (42.2-75.2) % Lymph % (Auto) 18.2 L (20.5-50.1) % [place] % (Auto) 15.8 H (2-8) % Eos % (Auto) 1.3 (1.0-3.0) % Baso % (Auto) 0.1 (0.0-1.0) % PT 10.3 (9.0-12.0) SEC INR 1.0 (0.9-1.2) Sodium 137 (135-145) mmol/L Potassium 4.0 (3.6-5.0) mmol/L Chloride 102 (101-111) mmol/L Carbon Dioxide 22.0 (21.0-31.0) mmol/L Anion Gap 17.0 BUN 27 H (7-18) mg/dL Creatinine 1.3 (0.6-1.3) mg/dL Est Cr Clr Drug Dosing 48.96 mL/min Estimated GFR (MDRD) 54 BUN/Creatinine Ratio 20.76 Glucose 94 (74-105) mg/dL Lactic Acid (0.5-2.2) mmol/L Calcium 9.8 (8.4-10.2) mg/dl Total Bilirubin 1.0 (0.2-1.0) mg/dL AST 25 (10-42) IU/L ALT 36 (10-60) IU/L Alkaline Phosphatase 73 (42-121) IU/L Troponin I < 0.02 (0.00-0.02) ng/ml Total Protein 6.7 (6.7-8.2) g/dl Albumin 4.1 (3.2-5.5) g/dl Globulin 2.6 Albumin/Globulin Ratio 1.58 Urine Color (YELLOW) Urine Appearance (CLEAR) Urine pH (5.0-9.0) Ur Specific [place] (1.005-1.030) Urine Protein (NEGATIVE) Urine Glucose (UA) (NEGATIVE) Urine Ketones (NEGATIVE) Urine Occult Blood (NEGATIVE) Urine Nitrite (NEGATIVE) Urine Bilirubin (NEGATIVE) Urine Urobilinogen (0.2-1.0) mg/dL Ur Leukocyte Esterase (NEGATIVE) Urine RBC /HPF Urine WBC (0-5/HPF) /HPF Ur Epithelial Cells /HPF Urine Bacteria (0-FEW/HPF) /HPF Urine Mucus /LPF Urinalysis Comment Urine Opiates Screen (NEGATIVE) Ur Oxycodone Screen (NEGATIVE) Urine Methadone Screen (NEGATIVE) Ur Barbiturates Screen (NEGATIVE) U Tricyclic Antidepress (NEGATIVE) Ur Phencyclidine Scrn (NEGATIVE) Ur Amphetamine Screen (NEGATIVE) U Methamphetamines Scrn (NEGATIVE) Urine MDMA Screen (NEGATIVE) U Benzodiazepines Scrn (NEGATIVE) Urine Cocaine Screen (NEGATIVE) U Marijuana (THC) Screen (NEGATIVE) Ethyl Alcohol < 5 mg/dL 12/04/18 12/04/18 12/04/18 Range/Units 14:50 16:25 16:25 WBC (5.0-10.0) 10^3/uL RBC (4.6-6.2) 10^6/uL Hgb (14.0-18.0) g/dL Hct (40.0-54.0) % MCV (80-100) fL MCH (27.0-34.0) pg MCHC (33.0-35.0) g/dL Plt Count (150-450) 10^3/uL Neut % (Auto) (42.2-75.2) % Lymph % (Auto) (20.5-50.1) % [place] % (Auto) (2-8) % Eos % (Auto) (1.0-3.0) % Baso % (Auto) (0.0-1.0) % PT (9.0-12.0) SEC INR (0.9-1.2) Sodium (135-145) mmol/L Potassium (3.6-5.0) mmol/L Chloride (101-111) mmol/L Carbon Dioxide (21.0-31.0) mmol/L Anion Gap BUN (7-18) mg/dL Creatinine (0.6-1.3) mg/dL Est Cr Clr Drug Dosing mL/min Estimated GFR (MDRD) BUN/Creatinine Ratio Glucose (74-105) mg/dL Lactic Acid 0.6 (0.5-2.2) mmol/L Calcium (8.4-10.2) mg/dl Total Bilirubin (0.2-1.0) mg/dL AST (10-42) IU/L ALT (10-60) IU/L Alkaline Phosphatase (42-121) IU/L Troponin I (0.00-0.02) ng/ml Total Protein (6.7-8.2) g/dl Albumin (3.2-5.5) g/dl Globulin Albumin/Globulin Ratio Urine Color Yellow (YELLOW) Urine Appearance Clear (CLEAR) Urine pH 6.5 (5.0-9.0) Ur Specific [place] 1.025 (1.005-1.030) Urine Protein Negative (NEGATIVE) Urine Glucose (UA) Negative (NEGATIVE) Urine Ketones Trace H (NEGATIVE) Urine Occult Blood Trace-intact H (NEGATIVE) Urine Nitrite Negative (NEGATIVE) Urine Bilirubin Negative (NEGATIVE) Urine Urobilinogen 1.0 (0.2-1.0) mg/dL Ur Leukocyte Esterase Negative (NEGATIVE) Urine RBC 0-5 /HPF Urine WBC Not seen (0-5/HPF) /HPF Ur Epithelial Cells Rare /HPF Urine Bacteria Rare (0-FEW/HPF) /HPF Urine Mucus Few H /LPF Urinalysis Comment See note Urine Opiates Screen Negative (NEGATIVE) Ur Oxycodone Screen Negative (NEGATIVE) Urine Methadone Screen Negative (NEGATIVE) Ur Barbiturates Screen Negative (NEGATIVE) U Tricyclic Antidepress Negative (NEGATIVE) Ur Phencyclidine Scrn Negative (NEGATIVE) Ur Amphetamine Screen Negative (NEGATIVE) U Methamphetamines Scrn Negative (NEGATIVE) Urine MDMA Screen Negative (NEGATIVE) U Benzodiazepines Scrn Negative (NEGATIVE) Urine Cocaine Screen Negative (NEGATIVE) U Marijuana (THC) Screen Negative (NEGATIVE) Ethyl Alcohol mg/dL Meds: Medications Discontinued Medications Generic Name Dose Route Start Last Admin Trade Name Freq PRN Reason Stop Dose Admin Lorazepam 0.5 mg 12/04/18 18:29 12/04/18 18:34 Ativan IVPUSH 12/04/18 18:30 0.5 mg ONETIME ONE Administration Lorazepam 1 mg 12/05/18 00:35 12/05/18 00:42 Ativan IVPUSH 12/05/18 00:36 1 mg ONETIME ONE Administration Sodium Chloride 10 ml 12/04/18 14:35 12/05/18 00:43 Saline Flush FLUSH 10 ml ASDIRECTED PRN Administration Keep Vein Open - Radiology Interpretation Free Text/Narrative:: CT of head wo contrast: FINDINGS: Brain: No acute hemorrhage. There is mild amount of scattered areas of hypoattenuation of the supratentorial white matter, most likely secondary to microvascular ischemic changes. Old left thalamic lacunar infarct noted. Ventricles: Normal. No ventriculomegaly. Bones/joints: Unremarkable. No acute fracture. Sinuses: Visualized sinuses are unremarkable. No acute sinusitis. Mastoid air cells: Visualized mastoid air cells are unremarkable. No mastoid effusion. Soft tissues: Unremarkable. IMPRESSION: No acute process Thank you for allowing us to participate in the care of your patient. Dictated and Authenticated by: Yohan Tang MD 12/04/2018 3:15 PM Central Time ([place] & [place]) Right hip: FINDINGS: Bones/joints: Normal. No acute fracture. Soft tissues: Normal. IMPRESSION: No acute findings. Thank you for allowing us to participate in the care of your patient. Dictated and Authenticated by: Yohan Tang MD 12/04/2018 3:19 PM Central Time ([place] & [place]) See rad report - Re-Assessments/Exams Free Text/Narrative Re-Assessment/Exam: 12/04/18 20:40 Discussed patient case with Dr. Julian at the [facility] in [place] who agreed to accept the patient for transfer to [place]. Departure - Departure Disposition: DC/Tfer to Acute Hospital 02 Clinical Impression: SunDown syndrome Fall in home Qualifiers: Encounter type: initial encounter Qualified Code(s): W19.XXXA - Unspecified fall, initial encounter; Y92.009 - Unspecified place in unspecified non- institutional (private) residence as the place of occurrence of the external cause Dementia Qualifiers: Dementia type: unspecified type Dementia behavioral disturbance: without behavioral disturbance Qualified Code(s): F03.90 - Unspecified dementia without behavioral disturbance - Discharge Information Referrals: PCP,Unobtain [Primary Care Provider] - Forms: ED Department Discharge <Mitali Abdullahi - Last Filed: 12/05/18 05:38> Course - Re-Assessments/Exams Free Text/Narrative Re-Assessment/Exam: [facility] Delay in tx r/t available service. Departure - Departure Time of Disposition: 02:15 Condition: Good
[2018-12-04] MEDS ORDERED: LORazepam 2 MG/ML Syringe IVPUSH ONE (18:29)
[2018-12-04 23:19] VITALS: BP 137/67
[2018-12-05] MEDS ORDERED: LORazepam 2 MG/ML Syringe IVPUSH ONE (00:35)
[2018-12-05] MEDS: Sodium Chloride 0.9% 10 ML Syringe FLUSH PRN (00:43)
== END 2018-12-05 02:03 ==
LOC: DL.ED 14:19
DX: G30.9 Alzheimer's disease, unspecified (principal); F02.80 Dementia in other diseases classified elsewhere, unspecified severity, without behavioral disturbance, psychotic disturbance, mood disturbance, and anxiety; R41.0 Disorientation, unspecified; I10 Essential (primary) hypertension; W19.XXXA Unspecified fall, initial encounter; Y92.009 Unspecified place in unspecified non-institutional (private) residence as the place of occurrence of the external cause
CPT/HCPCS: 36415; 51702; 70450; 73501; 80053; 80305; 81001; 83605; 84484; 85025; 85610; 87040; 93005; 96374; 96376; 99285; G0480; J2060